=== PATIENT | female | born 1965 | race Caucasian/White ===

== ENCOUNTER 2022-02-15 21:26 | Emergency (ER) | payer OTHER ==
[~2022-02-15] VITALS: Ht 165.1 cm; Wt 65.8 kg
[2022-02-15] MEDS ORDERED: CEPH500 PO (23:49)
== END 2022-02-15 23:58 | disposition home or self-care (01) ==
LOC: ER 21:26
DX: S61.210A Laceration without foreign body of right index finger without damage to nail, initial encounter (principal); Z88.2 Allergy status to sulfonamides; Z91.018 Allergy to other foods; W45.8XXA Other foreign body or object entering through skin, initial encounter
CPT/HCPCS: 99282

== ENCOUNTER 2022-07-10 07:05 | Emergency (ER) | payer OTHER ==
[~2022-07-10] VITALS: Ht 165.1 cm; Wt 63.5 kg
[~2022-07-10 07:05] MED LIST: CEPH500 PO
[2022-07-10] MEDS ORDERED: Robaxin750 MG PO (08:58)
[2022-07-10] MEDS ORDERED: GABA300 PO (08:58)
[2022-07-10] MEDS ORDERED: IBUP600 PO (08:58)
[2022-07-10] MEDS ORDERED: ACET500 PO (08:58)
== END 2022-07-10 09:10 | disposition home or self-care (01) ==
LOC: ER 07:05
DX: S39.012A Strain of muscle, fascia and tendon of lower back, initial encounter (principal); S33.5XXA Sprain of ligaments of lumbar spine, initial encounter; Z88.2 Allergy status to sulfonamides; Z91.018 Allergy to other foods; W19.XXXA Unspecified fall, initial encounter
CPT/HCPCS: A9270

== ENCOUNTER 2023-02-21 19:50 | Emergency (ER) | payer OTHER ==
[~2023-02-21] VITALS: Ht 162.6 cm; Wt 65.8 kg
[~2023-02-21 19:50] MED LIST changes: +ACET500 PO; +GABA300 PO; +IBUP600 PO; +Robaxin750 MG PO
[2023-02-21 20:07] VITALS: BP 138/90
[2023-02-21] MEDS ORDERED: CYCL10 PO (21:57)
[2023-02-21] MEDS ORDERED: LIDO700A20 TOP (21:57)
== END 2023-02-21 22:04 | disposition home or self-care (01) ==
LOC: ER 19:50
DX: M41.9 Scoliosis, unspecified (principal); M54.50 Low back pain, unspecified; G89.29 Other chronic pain; F17.200 Nicotine dependence, unspecified, uncomplicated; Z88.2 Allergy status to sulfonamides; Z91.018 Allergy to other foods; Z79.2 Long term (current) use of antibiotics; Z79.1 Long term (current) use of non-steroidal anti-inflammatories (NSAID); Z79.899 Other long term (current) drug therapy
CPT/HCPCS: 96372; 99283-25; A9270; J1885

== ENCOUNTER → 2023-06-02 | Outpatient (CLI) | payer OTHER ==
[~2023-06-02] MED LIST changes: +CYCL10 PO; +LIDO700A20 TOP
== END ==
LOC: LAB 16:30 → LAB SHORT 16:30
DX: R30.0 Dysuria (principal)
CPT/HCPCS: 87086

== ENCOUNTER 2024-01-31 12:58 | Day surgery (SDC) | payer OTHER ==
[~2024-01-31] VITALS: Ht 162.6 cm; Wt 74.6 kg
[~2024-01-31 12:58] MED LIST changes: +Lactated Ringer's 1,000 ML IV ONE
[2024-01-31] MEDS ORDERED: MELO7.5 PO (13:17)
[2024-01-31] MEDS ORDERED: LOSA50 PO (13:17)
[2024-01-31] MEDS ORDERED: ESTRADIOL42.5 GM (13:18)
[2024-01-31] MEDS ORDERED: OMEP20ER PO (13:18)
[2024-01-31] MEDS ORDERED: ZOLOFT10013 PO (13:18)
[2024-01-31] MEDS ORDERED: Lactated Ringer's 1,000 ML IV ONE (13:26)
[2024-01-31] MEDS ORDERED: NS 50 ML IV ONE (13:30)
[2024-01-31] MEDS ORDERED: CeFAZolin Sodium 2,000 MG VIAL ONE (13:30)
[2024-01-31] MEDS ORDERED: Glycopyrrolate 0.2 MG/ML 5ML VIAL ONE (14:45)
[2024-01-31] MEDS ORDERED: Midazolam HCl 1MG / ML 2ML Vial ONE (14:58)
--- NOTE | 2024-01-31 15:00 | NUR ---
01/31/24 Brielle Rob 1428: DR SANTOS NOTIFIED THAT PATIENT TOOK HER MELOXICAM RECENTLY 1430: TIMEOUT FOR PREPROCEDURAL LOCAL BLOCK FOLLOWING PREPROCEDURE LOCAL BLOCK COMPLETED BY DR SANTOS PATIENT CLOSED HER EYES AND STARTED TO LOOK PALE AND SAID SHE FELT LIKE SHE WAS GOING TO PASS OUT, RN PUT THE HEAD OF THE BED DOWN AND PUT THE BED IN [place] WHILE ATTACHING PATIENT TO BP MONITOR AND PULSE OXIMETER. SARIAH WASHINGTON AT BEDSIDE DURING OCCURRENCE. RN ENCOURAGED PATIENT TO TAKE DEEP BREATHS. AFTER A COUPLE MINUTES PATIENT'S COLOR RETURNED AND SHE STATED THAT SHE WAS FEELING BETTER, THAT SHE SOMETIMES HAS THAT REACTION TO NEEDLES. PATIENT DISCUSSED ANESTHESIA PROCESS AND MEDICAL HISTORY WITH SARIAH WASHINGTON AND WAS TAKEN TO OR.
[2024-01-31 15:28] VITALS: BP 122/73
== END 2024-01-31 15:50 | disposition home or self-care (01) ==
LOC: ORSCSDS 12:58
PROVIDERS: Orthopaedic Surgery
PROC: 01N50ZZ Release Median Nerve, Open Approach (ICD-10-PCS; principal; 2024-01-31 14:00)
DX: G56.03 Carpal tunnel syndrome, bilateral upper limbs (principal); I10 Essential (primary) hypertension; F41.9 Anxiety disorder, unspecified; Z79.899 Other long term (current) drug therapy
CPT/HCPCS: J0690; J2250; J7120

== ENCOUNTER 2024-03-25 16:11 | Emergency (ER) | payer OTHER ==
[~2024-03-25] VITALS: Ht 165.1 cm; Wt 70.3 kg
[~2024-03-25 16:11] MED LIST changes: +ESTRADIOL42.5 GM; +LOSA50 PO; -Lactated Ringer's 1,000 ML IV ONE; +MELO7.5 PO; +OMEP20ER PO; +ZOLOFT10013 PO
[2024-03-25 16:31] LABS: BASOPHILS ABSOLUTE AUTO 0.02 K/mm3 (0.00-0.23); BASOPHILS PERCENT AUTO 0 % (0-2); EOSINOPHILS ABSOLUTE AUTO 0.13 K/mm3 (0.00-0.68); EOSINOPHILS PERCENT AUTO 2 % (0-6); Hematocrit 37.4 % (33.0-51.0); Hemoglobin 12.6 g/dL (11.5-16.0); IMMATURE GRAN ABSOLUTE AUTO 0.02 K/mm3 (0.00-0.10); IMMATURE GRAN PERCENT AUTO 0 % (0-1); LYMPHOCYTES PERCENT AUTO 25 % (21-46); MONOCYTES ABSOLUTE AUTO 0.39 K/mm3 (0.16-1.47); MONOCYTES PERCENT AUTO 7 % (4-13); Mean Corpuscular HGB 31.3 pg (26.0-34.0); Mean Corpuscular HGB Conc 33.7 g/dL (31.5-36.5); Mean Corpuscular Volume 93 fL (80-100); Mean Platelet Volume 9.2 fL (9.1-12.4); NEUTROPHILS PERCENT AUTO 65 % (41-73); Platelet Count 178 K/mm3 (150-400); RDW Coefficient Variation 12.7 % (11.7-14.2); RDW Standard Deviation 43.7 fL (35.1-46.3); Red Blood Cell Count 4.02 M/mm3 (3.80-5.20); White Blood Cell Count 5.56 K/mm3 (4.00-11.30)
[2024-03-25 16:53] LABS: Albumin, Blood 3.4 g/dL (3.4-5.0); Albumin/Globulin Ratio 1.1 (0.8-1.8); Bilirubin, Total 0.4 mg/dL (0.1-1.0); Bun/Creatinine Ratio 22.4 (12.0-20.0); Calcium, Blood 8.2 mg/dL (8.5-10.1); Creatinine, Blood 0.71 mg/dL (0.40-1.00); Potassium, Blood 3.4 mmol/L (3.5-5.5); Total Protein, Blood 6.4 g/dL (6.4-8.2)
[2024-03-25] MEDS ORDERED: Morphine Sulfate 4 MG/1 ML Injection IV ONE ×2 (17:35→20:35)
[2024-03-25] MEDS ORDERED: Ondansetron HCl 2 MG / ML 2ML Vial IV ONE (20:35)
[2024-03-25 21:30] VITALS: BP 119/76
== END 2024-03-25 21:45 | disposition short-term general hospital (02) ==
LOC: ER 16:11
PROVIDERS: Emergency Medicine
DX: S82.144A Nondisplaced bicondylar fracture of right tibia, initial encounter for closed fracture (principal); S82.831A Other fracture of upper and lower end of right fibula, initial encounter for closed fracture; I10 Essential (primary) hypertension; W19.XXXA Unspecified fall, initial encounter; Z79.899 Other long term (current) drug therapy; Z88.2 Allergy status to sulfonamides; Z91.018 Allergy to other foods
CPT/HCPCS: 29505; 70450; 72125; 73080; 73552; 73590; 80053; 85025; 96374-59; 96375-59; 96376-59; 99285-25; J2270; J2405

== ENCOUNTER 2024-05-24 10:11 | Emergency (ER) | payer OTHER ==
[~2024-05-24] VITALS: Ht 162.6 cm; Wt 68.0 kg
[2024-05-24 10:50] VITALS: BP 149/991
== END 2024-05-24 10:56 | disposition home or self-care (01) ==
LOC: ER 10:11
DX: Z01.30 Encounter for examination of blood pressure without abnormal findings (principal); Z79.899 Other long term (current) drug therapy; Z88.2 Allergy status to sulfonamides; Z91.018 Allergy to other foods
CPT/HCPCS: 99281

== ENCOUNTER 2025-02-21 16:25 | Emergency (ER) | payer OTHER ==
[~2025-02-21] VITALS: Ht 165.1 cm; Wt 68.0 kg
[2025-02-21 16:44] VITALS: BP 141/92
== END 2025-02-21 18:17 | disposition home or self-care (01) ==
LOC: ER 16:25
DX: M70.861 Other soft tissue disorders related to use, overuse and pressure, right lower leg (principal); M41.9 Scoliosis, unspecified; I10 Essential (primary) hypertension; Z96.7 Presence of other bone and tendon implants; Z88.2 Allergy status to sulfonamides; Z91.018 Allergy to other foods; Z79.1 Long term (current) use of non-steroidal anti-inflammatories (NSAID); Z79.899 Other long term (current) drug therapy
CPT/HCPCS: 73590; 99283-25

== ENCOUNTER 2025-07-14 14:53 | Emergency (ER) | payer OTHER ==
[~2025-07-14] VITALS: Ht 165.1 cm; Wt 70.3 kg
[2025-07-14 15:34] LABS: BASOPHILS ABSOLUTE AUTO 0.04 K/mm3 (0.00-0.23); BASOPHILS PERCENT AUTO 1 % (0-2); EOSINOPHILS ABSOLUTE AUTO 0.19 K/mm3 (0.00-0.68); EOSINOPHILS PERCENT AUTO 3 % (0-6); Hematocrit 40.2 % (33.0-51.0); Hemoglobin 13.6 g/dL (11.5-16.0); IMMATURE GRAN ABSOLUTE AUTO 0.01 K/mm3 (0.00-0.10); IMMATURE GRAN PERCENT AUTO 0 % (0-1); LYMPHOCYTES ABSOLUTE AUTO 1.75 K/mm3 (0.84-5.20); LYMPHOCYTES PERCENT AUTO 29 % (21-46); MONOCYTES ABSOLUTE AUTO 0.42 K/mm3 (0.16-1.47); MONOCYTES PERCENT AUTO 7 % (4-13); Mean Corpuscular HGB Conc 33.8 g/dL (31.5-36.5); Mean Corpuscular Volume 93 fL (80-100); NEUTROPHILS ABSOLUTE AUTO 3.60 K/mm3 (1.96-9.15); NEUTROPHILS PERCENT AUTO 60 % (41-73); NRBC ABSOLUTE 0.00 K/mm3 (0.00-0.02); NRBC Auto 0.0 /100 WBC (0.0-0.2); Platelet Count 234 K/mm3 (150-400); RDW Coefficient Variation 12.5 % (11.7-14.2); RDW Standard Deviation 42.7 fL (35.1-46.3)
[2025-07-14 16:00] LABS: Alanine Aminotransfer (ALT/SGP 32.0 U/L (12-78); Albumin, Blood 4.1 g/dL (3.4-5.0); Albumin/Globulin Ratio 1.5 (0.8-1.8); Anion Gap 8.0 mmol/L (3-11); Aspartate Aminotrans (AST/SGOT 19.0 U/L (12-37); Bilirubin, Total 0.4 mg/dL (0.1-1.0); Blood Urea Nitrogen 24.0 mg/dL (8-24); CO2, Blood 23.0 mmol/L (21-32); Calcium, Blood 8.6 mg/dL (8.5-10.1); Chloride, Blood 113.0 mmol/L (98-108); Creatinine, Blood 0.67 mg/dL (0.40-1.00); Globulin, Blood 2.7 g/dL (2.2-4.0); Glucose, Blood 108.0 mg/dL (70-99); Potassium, Blood 3.9 mmol/L (3.5-5.5); Sodium, Blood 140.0 mmol/L (136-145); Total Protein, Blood 6.8 g/dL (6.4-8.2)
[2025-07-14 18:10] VITALS: BP 139/86
== END 2025-07-14 18:15 | disposition home or self-care (01) ==
LOC: ER 14:53
PROVIDERS: Physician Assistant
DX: R20.0 Anesthesia of skin (principal); R51.9 Headache, unspecified; Z88.2 Allergy status to sulfonamides; Z88.8 Allergy status to other drugs, medicaments and biological substances; Z79.899 Other long term (current) drug therapy
CPT/HCPCS: 70450; 70551; 80053; 82947; 85025